=== PATIENT | female | born 1955 | race African-American/Black ===

== ENCOUNTER 2019-07-28 13:11 | Emergency (ER) | payer MEDICAID, OTHER ==
[~2019-07-28] VITALS: Ht 157.5 cm; Wt 100.0 kg
[2019-07-28] MEDS ORDERED: TRAMADOL 50MG TABLET PO ONE (13:45)
[2019-07-28 15:15] VITALS: BP 126/74
== END 2019-07-28 15:15 | disposition home or self-care (01) ==
LOC: ER 13:11
DX: S20.211A Contusion of right front wall of thorax, initial encounter (principal); E11.9 Type 2 diabetes mellitus without complications; I10 Essential (primary) hypertension; Y93.89 Activity, other specified; Y92.89 Other specified places as the place of occurrence of the external cause; Y99.8 Other external cause status; Z96.659 Presence of unspecified artificial knee joint; Z88.6 Allergy status to analgesic agent
CPT/HCPCS: 71101; 73502; 99283

== ENCOUNTER 2022-01-17 20:29 | Emergency (ER) | payer OTHER, MEDICARE ==
[~2022-01-17] VITALS: Ht 165.1 cm; Wt 110.0 kg
[2022-01-17] MEDS ORDERED: PREDNISONE 20MG TABLET PO STA (21:12)
[2022-01-17 23:30] VITALS: BP 120/75
== END 2022-01-17 23:51 | disposition home or self-care (01) ==
LOC: ER 20:29
DX: J44.1 Chronic obstructive pulmonary disease with (acute) exacerbation (principal); I10 Essential (primary) hypertension; E11.9 Type 2 diabetes mellitus without complications; F17.210 Nicotine dependence, cigarettes, uncomplicated; Z71.6 Tobacco abuse counseling; Z88.8 Allergy status to other drugs, medicaments and biological substances
CPT/HCPCS: 71045; 87426; 93005; 99285; 99406; J7512

== ENCOUNTER 2022-05-19 15:34 | Emergency (ER) | payer OTHER, MEDICARE ==
[~2022-05-19] VITALS: Ht 167.6 cm; Wt 89.0 kg
[2022-05-20 00:41] VITALS: BP 115/62
== END 2022-05-20 00:52 | disposition home or self-care (01) ==
LOC: ER 15:34
DX: R60.0 Localized edema (principal); I10 Essential (primary) hypertension; E11.9 Type 2 diabetes mellitus without complications; Z88.5 Allergy status to narcotic agent
CPT/HCPCS: 36415; 85379; 93971; 99284

== ENCOUNTER 2024-06-01 00:18 | Emergency (ER) | payer MEDICARE, MEDICAID ==
[~2024-06-01] VITALS: Ht 165.1 cm; Wt 87.0 kg
[2024-06-01] MEDS ORDERED: PREDNISONE 20MG TABLET PO NR (00:29)
[2024-06-01] MEDS: ALBUTEROL (0.083%) 2.5MG/3ML NEB HHN NR (00:51)
[2024-06-01 00:52] VITALS: PULSE 84; RESP 18; O2SAT 100
[2024-06-01] MEDS: IPRATROPIUM BROMIDE (0.02%) 0.5MG/2.5ML NEB HHN NR (00:52)
[2024-06-01 00:58] LABS: BASOPHILS % 0.7 % (0.0-2.0); EOSINOPHILS % 1.5 % (0.0-5.0); HEMATOCRIT. 43.4 % (36.0-48.0); HEMOGLOBIN. 14.2 g/dL (12.0-16.0); LYMPHOCYTES % 40.2 % (20.0-50.0); MEAN CORPUSCULAR HEMOGLOBIN 29.5 pg (28.0-32.0); MEAN CORPUSCULAR HGB CONC 32.7 g/dL (31.0-37.0); MEAN CORPUSCULAR VOLUME 90.1 fL (81.0-99.0); MEAN PLATELET VOLUME 6.9 fl (7.4-10.4); MONOCYTES % 7.7 % (2.0-8.0); NEUTROPHILS % 49.9 % (40.0-76.0); PLATELET 327 x1000/uL (130-400); RED BLOOD CELL COUNT 4.82 mill/uL (4.2-5.4); RED CELL DISTRIBUTION WIDTH 15.5 % (11.6-14.6); WHITE BLOOD COUNT 8.6 x1000/uL (4.5-11.0)
[2024-06-01 01:06] LABS: CHLORIDE 99 mEq/L (98-107); POTASSIUM 4.4 mEq/L (3.5-5.1); SODIUM 134 mEq/L (136-145)
[2024-06-01 01:07] LABS: CALCIUM 9.5 mg/dL (8.7-10.4); CARBON DIOXIDE 30 mEq/L (21-32)
[2024-06-01 01:11] LABS: PROTHROMBIN TIME 10.7 sec (9.6-11.0)
[2024-06-01 01:12] LABS: CREATININE 1.3 mg/dL (0.6-1.0); GLUCOSE 146 mg/dL (70-105); TROPONIN I HIGH SENSITIVITY 7 ng/L (3.0-34); UREA NITROGEN BLOOD 24 mg/dL (9-23)
[2024-06-01 01:14] LABS: ALANINE AMINOTRANSFERASE 7 IU/L (10-49); ALBUMIN 4.2 g/dL (3.2-4.8); ASPARTATE AMINOTRANSFERASE 15 IU/L (<34); BILIRUBIN DIRECT 0.1 mg/dL (<=3.0); BILIRUBIN TOTAL 0.4 mg/dL (0.1-1.0); PROTEIN TOTAL 7.2 g/dL (6.0-8.3)
[2024-06-01] MEDS ORDERED: SODIUM CHLORIDE 0.9% 250 ML IV ONE (03:30)
[2024-06-01 03:58] LABS: POTASSIUM 4.6 mEq/L (3.5-5.1)
[2024-06-01 03:59] LABS: CALCIUM 9.4 mg/dL (8.7-10.4)
[2024-06-01 04:04] LABS: CREATININE 1.3 mg/dL (0.6-1.0)
[2024-06-01] MEDS ORDERED: P20 MT (05:22)
[2024-06-01 06:21] VITALS: BP 122/54; PULSE 76; RESP 18; TEMP 98.8
== END 2024-06-01 06:23 | disposition home or self-care (01) ==
LOC: ER 00:18
DX: J44.1 Chronic obstructive pulmonary disease with (acute) exacerbation (principal); E11.9 Type 2 diabetes mellitus without complications; I10 Essential (primary) hypertension; Z88.5 Allergy status to narcotic agent
CPT/HCPCS: 99291; 80076; 80048; 83880; 83690; 85025; 85610; 84484; 36415; 71045; 93005; 94644; J7512

== ENCOUNTER 2025-04-15 14:20 | Emergency (ER) | payer MEDICARE, MEDICAID ==
[~2025-04-15] VITALS: Ht 157.5 cm; Wt 112.0 kg
[~2025-04-15 14:20] MED LIST: ATOR40TA70 PO; BUME1TAB8 PO; COR12 PO; CYAN100T43 PO; DILT120C88 PO; EMPA10TA PO; FLUT1DIS6 INH; LOSA100T33 PO; QUET100T34 PO; SERT-422 PO
[2025-04-15 19:08] LABS: BASOPHILS % 0.8 % (0.0-2.0); EOSINOPHILS % 3.5 % (0.0-5.0); HEMATOCRIT. 33.6 % (36.0-48.0); HEMOGLOBIN. 10.8 g/dL (12.0-16.0); LYMPHOCYTES % 30.9 % (20.0-50.0); MEAN CORPUSCULAR HEMOGLOBIN 28.2 pg (28.0-32.0); MEAN CORPUSCULAR HGB CONC 32.1 g/dL (31.0-37.0); MEAN CORPUSCULAR VOLUME 87.7 fL (81.0-99.0); MEAN PLATELET VOLUME 7.6 fl (7.4-10.4); MONOCYTES % 9.2 % (2.0-8.0); NEUTROPHILS % 55.6 % (40.0-76.0); PLATELET 289 x1000/uL (130-400); RED BLOOD CELL COUNT 3.83 mill/uL (4.2-5.4); RED CELL DISTRIBUTION WIDTH 13.6 % (11.6-14.6)
[2025-04-15 19:16] LABS: INR 0.9
[2025-04-15 19:30] LABS: CARBON DIOXIDE 33 mEq/L (21-32); CHLORIDE 96 mEq/L (98-107); POTASSIUM 3.8 mEq/L (3.5-5.1); SODIUM 136 mEq/L (136-145)
[2025-04-15 19:31] LABS: CALCIUM 9.5 mg/dL (8.7-10.4)
[2025-04-15] MEDS: ALBUTEROL (0.083%) 2.5MG/3ML NEB HHN STA (19:33)
[2025-04-15] MEDS: IPRATROPIUM BROMIDE (0.02%) 0.5MG/2.5ML NEB HHN STA (19:34)
[2025-04-15 19:35] LABS: CREATININE 1.5 mg/dL (0.6-1.0); GLUCOSE 182 mg/dL (70-105); TROPONIN I HIGH SENSITIVITY 8 ng/L (3.0-34); UREA NITROGEN BLOOD 27 mg/dL (9-23)
[2025-04-15 19:36] VITALS: PULSE 82; RESP 18; O2SAT 96
[2025-04-15] MEDS: BUMETANIDE 1MG/4ML VIAL IV ONE (19:39)
[2025-04-15 20:55] VITALS: BP 153/65; PULSE 78; RESP 16; TEMP 37; O2SAT 97
== END 2025-04-15 21:31 | disposition home or self-care (01) ==
LOC: ER 14:20
DX: R60.0 Localized edema (principal); J44.89 Other specified chronic obstructive pulmonary disease; E78.00 Pure hypercholesterolemia, unspecified; E11.9 Type 2 diabetes mellitus without complications; I11.0 Hypertensive heart disease with heart failure; I50.9 Heart failure, unspecified; Z79.51 Long term (current) use of inhaled steroids; Z79.84 Long term (current) use of oral hypoglycemic drugs; Z96.659 Presence of unspecified artificial knee joint; Z79.899 Other long term (current) drug therapy; Z99.81 Dependence on supplemental oxygen
CPT/HCPCS: 99285; 96374; 93971; 71045; 80048; 83880; 83735; 85025; 85610; 84484; 36415; 94640; J3490; 94070

== ENCOUNTER 2025-10-06 18:49 | Emergency (ER) | payer MEDICARE, MEDICAID ==
[~2025-10-06] VITALS: Ht 157.5 cm; Wt 100.0 kg
[2025-10-06 18:55] VITALS: O2SAT 94
[2025-10-06] MEDS: SODIUM CHLORIDE 0.9% 1,000 ML IV ONE (20:16)
[2025-10-06] MEDS: ACETAMINOPHEN 1000MG/100ML 100 ML IV ONE (20:17)
[2025-10-06] MEDS: ONDANSETRON HCL 4MG/2ML INJ IV ONE (20:17)
[2025-10-06 20:47] LABS: BASOPHILS % 0.6 % (0.0-2.0); EOSINOPHILS % 1.8 % (0.0-5.0); HEMATOCRIT. 32.9 % (36.0-48.0); HEMOGLOBIN. 10.5 g/dL (12.0-16.0); LYMPHOCYTES % 23.4 % (20.0-50.0); MEAN PLATELET VOLUME 7.5 fl (7.4-10.4); MONOCYTES % 10.7 % (2.0-8.0); NEUTROPHILS % 63.5 % (40.0-76.0); PLATELET 321 x1000/uL (130-400); RED BLOOD CELL COUNT 3.86 mill/uL (4.2-5.4); RED CELL DISTRIBUTION WIDTH 14.0 % (11.6-14.6)
[2025-10-06 21:07] LABS: CREATININE 1.8 mg/dL (0.6-1.0); UREA NITROGEN BLOOD 36 mg/dL (9-23)
[2025-10-06 21:08] LABS: PROTEIN TOTAL 7.4 g/dL (6.0-8.3)
[2025-10-06 21:09] LABS: ASPARTATE AMINOTRANSFERASE 23 IU/L (<34)
[2025-10-06 21:10] LABS: BILIRUBIN DIRECT < 0.1 mg/dL (<=3.0); BILIRUBIN TOTAL 0.3 mg/dL (0.1-1.0)
[2025-10-07 00:19] VITALS: BP 135/68; PULSE 65; RESP 21; TEMP 36.9; O2SAT 95
== END 2025-10-07 00:23 | disposition home or self-care (01) ==
LOC: ER 18:49
DX: I62.9 Nontraumatic intracranial hemorrhage, unspecified (principal); G43.909 Migraine, unspecified, not intractable, without status migrainosus; E11.9 Type 2 diabetes mellitus without complications; E78.00 Pure hypercholesterolemia, unspecified; I11.0 Hypertensive heart disease with heart failure; I50.9 Heart failure, unspecified; J44.89 Other specified chronic obstructive pulmonary disease; Z79.51 Long term (current) use of inhaled steroids; Z96.659 Presence of unspecified artificial knee joint; Z79.899 Other long term (current) drug therapy; Z79.84 Long term (current) use of oral hypoglycemic drugs
CPT/HCPCS: 99285; 96365; 70450; 96375; 80076; 80048; 83690; 85025; 36415; J2405; J7030; A4615; J0131